=== PATIENT | female | born 1975 | race Two or more races ===

== ENCOUNTER 2017-04-15 16:37 | Emergency (ER) | payer SELFPAY ==
[~2017-04-15] VITALS: Ht 162.6 cm; Wt 83.9 kg
[2017-04-15 16:53] VITALS: BP 124/62
--- NOTE | 2017-04-15 17:09 | Emergency Room Report ---
History of Present Illness General Chief Complaint: Abdominal Pain Source: Patient Present Illness HPI 41 yo female patient BIB ambulance presents to ER complaining of abdominal pain and vomiting s/p swallowing plastic. EMT reports she was allegedly at [employer] this morning and drinking a [employer] iced latte; patient states part of lid of cup had been blended into her drink; state she swallowed part of plastic lid thinking it was ice. Reports feels like something stuck in her throat. Patient also complains abdominal pain and vomiting since that time. Denies blood in vomit. Denies people with similar symptoms. Denies chest pain, SOB, fever. Allergies: Coded Allergies: No Known Allergies (Unverified , 04/15/17) Patient History Past Medical History: see triage record Now: No Reviewed Nursing Documentation: PMH: Agreed, PSxH: Agreed Nursing Documentation-PMH Past Medical History: No Stated History Review of Systems All Other Systems: negative except mentioned in HPI Physical Exam Vital Signs Date Time Temp Pulse Resp B/P (MAP) Pulse Ox O2 Delivery O2 Flow Rate FiO2 04/15/17 16:43 98.4 78 20 124/62 100 Room Air 98.4 Sp02 EP Interpretation: reviewed, normal General Appearance: well appearing, alert, GCS 15, non-toxic, mild distress Head: normocephalic, atraumatic Eyes: bilateral eye normal inspection, bilateral eye PERRL ENT: hearing grossly normal, normal pharynx, no angioedema, normal voice, uvula midline, moist mucus membranes Neck: full range of motion Respiratory: lungs clear, normal breath sounds, no rhonchi, no respiratory distress, no accessory muscle use, no wheezing, speaking full sentences, other Cardiovascular #1: regular rate, rhythm, no edema Gastrointestinal: non tender, soft, no mass, non-distended, no guarding, no rebound, other - Negative Sprague sign, Negative Rovsing, Negative tenderness at McBurney's point Genitourinary: no CVA tenderness Musculoskeletal: back normal, digits/nails normal, gait/station normal, normal range of motion, non-tender Neurologic: alert, oriented x3, responsive, motor strength/tone normal, sensory intact, normal gait Psychiatric: mood/affect normal Skin: no rash Lymphatic: no adenopathy Medical Decision Making PA Attestation Dr. Acevedo is my supervising Physician whom patient management has been discussed with. Diagnostic Impression: Primary Impression: Vomiting Additional Impression: Swallowed foreign body ER Course Pt. presents to the ED c/o vomiting. Ddx considered but are not limited to gastritis, viral syndrome, food poisoning , swallowed foreign body. Lungs clear to auscultation, no stridor. Negative Sprague sign. Vital signs: are WNL, pt. is afebrile Patient does not require labs or admission for endoscopy at this time. Patient seen and evaluated by Dr. Acevedo. Agrees and instructs patient that plastic will pass in her stool and is not harmful to her. Informed patient that pain may be related to symptoms of throwing up. Patient instructed to followup with primary care provider for further referral as needed. Ordered Zofran and Pepcid. ED INTERVENTIONS: Zofran provided to patient. Patient reports feeling better following administration of medication. Patient able to tolerate PO fluids at this time. Patient seen resting in bed in no acute distress. DISCHARGE Rx provided for Zofran Rx provided for Tylenol Rx provided for Pepcid At this time pt is stable for d/c to home. Patient is resting comfortably, in no acute distress, nontoxic appearing, talking without difficulty. Patient to take medications as instructed Will provide with patient care instructions and any necessary prescriptions. Care plan and follow-up instructions provided. Patient instructed to follow-up with primary care provider in 3 - 5 days. Patient questions asked and answered. Patient reports understanding and agreement to treatment plan.ER precautions given. Patient instructed to return to ER immediately for any new or worsening of symptoms including but not limited to increasing SOB, persistent fever, intractable vomiting. Last Vital Signs Date Time Temp Pulse Resp B/P (MAP) Pulse Ox O2 Delivery O2 Flow Rate FiO2 04/15/17 16:53 98.4 20 124/62 100 Room Air 98.4 04/15/17 16:43 78 Disposition: HOME, SELF-CARE Condition: Stable Scripts Famotidine (PEPCID AC) 10 Mg Tablet 10 MG PO DAILY for 7 Days, #15 TAB Prov: Estiven Moore.A. 04/15/17 Acetaminophen* (TYLENOL EXTRA STRENGTH*) 500 Mg Tablet 500 MG ORAL Q8H Y for Prn Headache/Temp > 101, #30 TAB 0 Refills Prov: Estiven Moore.Marilee 04/15/17 Ondansetron Odt* (ZOFRAN ODT*) 4 Mg Tab.rapdis 4 MG ORAL Q8H Y for Nausea & Vomiting, #30 TAB 0 Refills Prov: Estiven Moore 04/15/17 Patient Instructions: Nausea and Vomiting, Adult, [id number], Swallowed Foreign Body, Adult, [id number] Additional Instructions: Followup with primary care provider in 3 -5 days. Discuss further treatment and referral to GI specialist as needed. Object will pass with time. Return to ER if symptoms worsen. Take medications as directed. Patient questions asked and answered. ER precautions given, patient instructed to return to ER immediately for any new or worsening of symptoms including but not limited to fever, intractable vomiting, chest pain, SOB. Estiven Moore Apr 15, 2017 17:09
[2017-04-15 18:40] VITALS: BP 125/78
[2017-04-15] MEDS ORDERED: PEPCID AC10 MG PO (18:56)
[2017-04-15] MEDS ORDERED: ZOFRAN ODT4 MG ORAL (18:56)
[2017-04-15] MEDS ORDERED: TYLENOL EXTRA500 MG ORAL (18:56)
[2017-04-15 19:53] VITALS: BP_SYST 118; BP_SYST 125; BP_DIAS 78
== END 2017-04-15 19:59 | disposition home or self-care (01) ==
LOC: EDBD 16:37 → EMR 17:50
DX: R11.10 Vomiting, unspecified (principal); T18.0XXA Foreign body in mouth, initial encounter; X58.XXXA Exposure to other specified factors, initial encounter; Y92.511 Restaurant or cafe as the place of occurrence of the external cause
CPT/HCPCS: 96374; 96375; 99284; J2405; S0028